=== PATIENT | female | born 1980 | race Caucasian/White ===

== ENCOUNTER 2019-10-24 05:35 | Observation (INO) | payer MEDICAID ==
[~2019-10-24] VITALS: Ht 167.6 cm; Wt 136.1 kg
[2019-10-24] MEDS ORDERED: VITAMIN D (06:56)
[2019-10-24] MEDS ORDERED: LABE200T28 PO (06:56)
[2019-10-24] MEDS ORDERED: HUMULOG ×2 (06:56)
[2019-10-24] MEDS ORDERED: HUMULIN N (06:56)
[2019-10-24] MEDS ORDERED: PNV91TAB6 PO (06:56)
[2019-10-24] MEDS ORDERED: FAMO-134 PO (06:56)
[2019-10-24] MEDS ORDERED: INSULIN NPH (HUMULIN-N) 100 UNITS/ML 3ML VIAL SUBCUT ONE (09:00)
[2019-10-24] MEDS ORDERED: BETAMETHASONE ACET/BETAMET 30 MG/5 ML VIAL IM SCH (09:00)
[2019-10-24] MEDS ORDERED: INSULIN LISPRO 100 UNITS/ML SUBCUT NR ×2 (09:30→21:00)
[2019-10-24] MEDS ORDERED: INSULIN LISPRO 100 UNITS/ML SUBCUT ONE (09:45)
[2019-10-24] MEDS ORDERED: INSULIN NPH (HUMULIN-N) 100 UNITS/ML 3ML VIAL SUBCUT NR ×2 (09:45→23:59)
[2019-10-24 10:10] LABS: BASOPHILS % 0.4 % (0.0-2.0); EOSINOPHILS % 1.5 % (0.0-5.0); HEMATOCRIT. 34.2 % (36.0-48.0); HEMOGLOBIN. 11.6 g/dL (12.0-16.0); LYMPHOCYTES % 18.9 % (20.0-50.0); MEAN CORPUSCULAR HEMOGLOBIN 27.3 pg (28.0-32.0); MEAN CORPUSCULAR VOLUME 80.6 fL (81.0-99.0); MEAN PLATELET VOLUME 7.9 fl (7.4-10.4); MONOCYTES % 6.2 % (2.0-8.0); PLATELET 343 x1000/uL (130-400); RED BLOOD CELL COUNT 4.24 mill/uL (4.2-5.4)
[2019-10-24 10:17] LABS: CHLORIDE 105 mEq/L (98-107)
[2019-10-24 10:26] LABS: D-DIMER 0.78 mg/L FEU (<0.50); INR 0.9
[2019-10-24 12:32] LABS: CLARITY URINE CLOUDY (CLEAR); COLOR URINE YELLOW (YELLOW); KETONES URINE NEGATIVE (NEGATIVE); LEUKOCYTE ESTERASE URINE 1+ (NEGATIVE); NITRITE URINE NEGATIVE (NEGATIVE); OCCULT BLOOD URINE NEGATIVE (NEGATIVE); PH URINE 5.5 (4.5-8.0); PROTEIN URINE NEGATIVE (NEGATIVE)
== END 2019-10-25 12:00 | disposition home or self-care (01) ==
LOC: 8 EST LDRP 05:35
PROVIDERS: ADMIT Obstetrics & Gynecology Obstetrics; ATTEND Obstetrics & Gynecology Obstetrics
DX: O36.8130 Decreased fetal movements, third trimester, not applicable or unspecified (principal); O13.3 Gestational [pregnancy-induced] hypertension without significant proteinuria, third trimester; O24.913 Unspecified diabetes mellitus in pregnancy, third trimester; Z3A.35 35 weeks gestation of pregnancy; Z98.891 History of uterine scar from previous surgery
CPT/HCPCS: 36415; 76805; 76815; 80053; 81003; 82962; 84550; 85025; 85379; 85384; 85610; 85730; 87086; 96372; G0378; J1815